=== PATIENT | female | born 1995 | race Caucasian/White ===

== ENCOUNTER 2017-01-12 00:03 | Emergency (ER) | payer OTHER ==
[2017-01-12 00:42] LABS: HEMOGLOBIN 13.3 gm/dl (12.3-15.3); RED BLOOD COUNT 4.48 M/UL (4.00-5.10); WHITE BLOOD COUNT 6.8 K/UL (4.5-11.0)
[2017-01-12 00:59] LABS: BUN/CREATININE RATIO 17 (0-10)
== END 2017-01-12 01:11 | disposition left against medical advice (07) ==
LOC: ER1 00:03
PROVIDERS: Student in an Organized Health Care Education/Training Program
DX: G40.909 Epilepsy, unspecified, not intractable, without status epilepticus (principal); Z79.899 Other long term (current) drug therapy
CPT/HCPCS: 36415; 80053; 80307; 81001; 82550; 82962; 83735; 83874; 85025; 96374; 99284; G0480; J2060

== ENCOUNTER → 2017-02-03 | Outpatient (CLI) | payer OTHER | LOC: EMI 09:00 | DX: G40.209 Localization-related (focal) (partial) symptomatic epilepsy and epileptic syndromes with complex partial seizures, not intractable, without status epilepticus (principal); R93.0 Abnormal findings on diagnostic imaging of skull and head, not elsewhere classified | CPT/HCPCS: 70553; A9577; J7050 ==